=== PATIENT | male | born 1970 | race Caucasian/White ===

== ENCOUNTER 2021-07-23 12:23 | Emergency (ER) | payer OTHER, SELFPAY ==
[2021-07-23 12:25] VITALS: BP 148/129; PULSE 74; RESP 18; TEMP 36.8; O2SAT 98; BMI 34.0
--- NOTE | 2021-07-23 12:59 | ED.GENADULT ---
HPI - General Adult General Chief complaint: General Medical Stated complaint: med refill Time Seen by Provider: 07/23/21 12:57 Source: patient Mode of arrival: ambulatory Limitations: no limitations History of Present Illness HPI narrative: 51-year-old male presents for a request to refill his Eliquis prescription. Patient was diagnosed with segmental right lower lobe pulmonary emboli and left lower extremity DVT at the end of April 2021 after as suicide attempt with gabapentin overdose. Patient was in the ICU for this, which most likely precipitated his hyper coagulopathy. Patient is currently at the [facility] in [place], a 12 [facility] addiction Treatment Center. Patient has a past medical history of major depression and anxiety. Today he is not suicidal or homicidal, no hallucinations. Patient does have a psychiatrist in [place]. Patient states yesterday he had brown urine. He has no back pain. No abdominal pain. No calf pain. No chest pain, no shortness of breath. Patient is transferring his care from his primary care in [place] or he used to live to a primary care provider in [place]. He has an appointment August 16 with his new primary care provider. Related Data Previous Rx's Medication Instructions Recorded apixaban 5 mg tablet (Eliquis) 5 mg PO BID #60 tab 07/23/21 atorvastatin 20 mg tablet 20 mg PO DAILY #30 tab 07/23/21 clonidine HCl 0.1 mg tablet 0.1 mg PO BEDTIME #7 tab 07/23/21 quetiapine 25 mg tablet (Seroquel) 25 mg PO BEDTIME #7 tab 07/23/21 sennosides 8.6 mg tablet (senna) 17.2 mg PO DAILY PRN #30 tab 07/23/21 Allergies Allergy/AdvReac Type Severity Reaction Status Date / Time No Known Allergies Allergy Verified 07/23/21 12:27 Review of Systems Constitutional: Constitutional: Denies body ache(s), Denies chills, Denies fatigue, Denies fever(s), Denies headache(s), Denies malaise and Denies weakness Eyes: Eyes: Denies diplopia ENT: Denies vertigo, Denies dizziness, Denies otalgia, Denies headache(s), Denies mouth pain, Denies neck pain, Denies post nasal drip, Denies sinus pain, Denies sinus pressure, Denies sore throat and Denies throat swelling Cardiovascular: Cardiovascular: Denies chest pain, Denies syncope, Denies leg edema, Denies lightheadedness, Denies Loss of Consciousness, Denies palpitations and Denies dyspnea Respiratory: Respiratory: Denies chest congestion, Denies cough and Denies dyspnea Gastrointestinal: Gastrointestinal: Denies abdominal pain, Denies hematochezia, Denies constipation, Denies diarrhea and Denies vomiting Genitourinary: Genitourinary: Reports hematuria, Denies dysuria, Denies flank pain and Denies urinary incontinence Musculoskeletal: Musculoskeletal: Reports no additional musculoskeletal complaints, Denies back pain, Denies myalgias, Denies muscle weakness, Denies neck pain and Denies radiating pain into limb Neurologic: Denies confusion, Denies vertigo, Denies dizziness, Denies syncope, Denies headache(s) and Denies weakness Psychiatric: Psychiatric: Denies anxiety, Denies confusion and Denies depression Endocrine: Endocrine: Denies fatigue and Denies palpitations Allergic/Immunologic: Allergic/Immunologic: Denies throat swelling PMFSH Past Medical History Medical History DVT (deep venous thrombosis) Pulmonary emboli Social History Social History Advance Directives: No Advance Directives Information Provided: No Physical Exam Vital Signs: Vital Signs: Last Vital Signs Temp 98.3 F 07/23/21 12:25 Pulse 74 07/23/21 12:25 Resp 18 07/23/21 12:25 BP 148/129 H 07/23/21 12:25 Pulse Ox 98 07/23/21 12:25 Body Mass Index 34.0 Const: General: No confusion Nutritional Appearance: well nourished Orientation/consciousness: No confusion Limitations: no limitations HENMT: Head: Yes normal to inspection, Yes normocephalic and Yes atraumatic Ears: hearing grossly normal bilaterally, external ears normal, TM's normal bilaterally and EAC's normal General nose exam: Normal external nose present Face and sinus: Yes normal facial exam and Yes sinuses nontender Mouth: Normal oral and palatal mucosa present Throat: Yes posterior oropharynx normal Eyes: Conjunctivae: conjunctivae normal Pupils: Equal, round and reactive pupils present EOM: EOMs intact bilaterally Neck: Neck: Yes full ROM, Yes no lymphadenopathy and Yes supple Resp: Effort & Inspection: normal respiratory effort and able to speak in complete sentences Auscultation: clear to auscultation bilaterally, no crackles, no rales, no rhonchi and no wheezes Cardio: Rate: regular rate Rhythm: regular rhythm Heart sounds: S1 normal heart sound present and S2 normal heart sound present GI: Inspection: Yes normal to inspection Palpation (GI): Soft to palpation, nontender, no guarding and not rigid Percussion: Yes normal to percussion Auscultation: normal bowel sounds : General: Yes no CVA tenderness Back/Spine/Pelvis: Back: no CVA tenderness Cervical Spine: No cervical muscular tenderness Thoracic/Lumbar Spine: No thoracic spinal tenderness and No lumbar spinal tenderness Pelvis: no pain with anterior-posterior compression and no pain with lateral compression Skin: General skin exam: no rashes or lesions noted Neuro: General: No confusion Cranial nerves: Yes Equal, round and reactive pupils present Extrem: General: Yes normal to inspection and Yes full ROM Left lower extremity: normal to inspection, full ROM, normal capillary refill and lower leg Details: normal to inspection; Negative for no erythema, no tenderness, no localized swelling and no palpable cords; No no cyanosis, no edema and joint enlargement noted Psych: Appearance: grossly normal Affect: normal affect Attitude: cooperative Thought process: Normal thought process present Course Course Course Narrative: 51-year-old male presents for request of medication refills. Patient has been off of his Eliquis for 5 days. States yesterday he had blood in his urine. He has no back pain, no belly pain, no nausea or vomiting. No shortness of breath, no calf pain, no chest pain. He has a benign physical exam, with no redness swelling or warmth in his left lower extremity. No CVA tenderness, UA shows hematuria. This presents a conundrum, because patient has only been anticoagulated for 2 months, however, he has blood in his urine. Discussed with Dr. Voss the possibility of patient throwing a clot into his renal artery, she did not think this was likely, given that patient had no pain. She suggested I discuss with patient that we are between a rock and a hard place;, he has not completed the 3-6 months treatment of anticoagulation, however he has blood in his urine. Patient needs anticoagulation still, however we do not want to anticoagulate him to the point where he is urinating blood and needs a transfusion. The plan is to have the patient drink plenty of water, and to observe his urine. If he still has dark colored urine tomorrow, he should come back to the emergency room for further evaluation. He should not take his Eliquis today, he should wait until he has clear urine to take his Eliquis. Patient verbalized agreement and understanding of the plan. In addition I represcribed his atorvastatin and senna for 30 days, I also represcribed 1 week of Seroquel and clonidine, and advised him to follow-up with his psychiatrist for these medications. In addition, I referred him to Urology and gave him the phone number to call them on Sunday. Gave return precautions, patient verbalized agreement and understanding of the plan. Medical Decision Making Lab Data Labs: Lab Results 07/23/21 Range/Units 13:32 Urine Color YELLOW Urine Appearance HAZY Urine pH 6.0 (5.0-8.0) Ur Specific [place] >= 1.030 H (1.005-1.025) Urine Protein 1+ H (NEG-TRACE) MG/DL Urine Glucose (UA) NEG (NEG) MG/DL Urine Ketones NEG (NEG) MG/DL Urine Blood 2+ H (NEG) Urine Nitrite NEG (NEG) Ur Leukocyte Esterase NEG (NEG) Urine RBC 5-9 H (0) /HPF Urine WBC 1-4 (0-4) /HPF Ur Squamous Epith Cells 1+ /LPF Amorphous Sediment 1+ /LPF Urine Bacteria TRACE /LPF Granular Casts 1-4 /LPF Urine Mucus 3+ /LPF Discharge Plan Discharge Clinical Impression: Encounter for medication refill Hematuria Qualifiers: Hematuria type: other microscopic Qualified Code(s): R31.29 - Other microscopic hematuria Patient Disposition: Home, Self-Care Instructions: Hematuria (ED) Additional Instructions: as we discussed, fill your prescription for Eliquis today, but do not take it until tomorrow. Today, drink plenty of water, 2-3 L of water. If tomorrow you still have visible blood in your urine, you must return to the emergency room and do not start your Eliquis in addition, please call Urology in your discharge paperwork on Sunday for follow-up appointment. The number is [phone] Please call your psychiatrist for more Seroquel and clonidine medication. Please return to emergency room if you have blood in your urine, chest pain, shortness of breath, or any other new or concerning symptoms. Prescriptions: New Eliquis 5 mg tablet 5 mg PO BID Qty: 60 RF: 0 atorvastatin 20 mg tablet 20 mg PO DAILY Qty: 30 RF: 0 sennosides [senna] 8.6 mg tablet 17.2 mg PO DAILY PRN (Reason: constipation) Qty: 30 RF: 0 quetiapine [Seroquel] 25 mg tablet 25 mg PO BEDTIME Qty: 7 RF: 0 clonidine HCl 0.1 mg tablet 0.1 mg PO BEDTIME Qty: 7 RF: 0 Referrals: Jim Szymanski III, MD [Physician] - 2 days Interventions: ED Discharge Assessment Last Done: 07/23/21 14:52 Discharge Date/Time: 07/23/21 14:53
[2021-07-23 13:39] LABS: Appearance Urine HAZY; Color Urine YELLOW; Glucose Urine UA NEG (NEG); Leukocyte Esterase Urine NEG (NEG); Nitrite Urine NEG (NEG); Specific Gravity - Urine >= 1.030 (1.005-1.025); Urine Blood 2+ (NEG); Urine Ketones NEG (NEG); Urine Protein 1+ MG/DL (NEG-TRACE)
[2021-07-23 13:46] LABS: Amorphous Sediment Urine 1+ /LPF; Bacteria Urine TRACE /LPF; Mucus Urine 3+ /LPF; Squamous Epithelial Cell Urine 1+ /LPF
== END 2021-07-23 14:53 | disposition home or self-care (01) ==
PROVIDERS: Physician Assistant; Emergency Provider Emergency Medicine
DX: R31.29 Other microscopic hematuria (principal); I82.402 Acute embolism and thrombosis of unspecified deep veins of left lower extremity; I26.99 Other pulmonary embolism without acute cor pulmonale; Z79.01 Long term (current) use of anticoagulants; Z79.899 Other long term (current) drug therapy
CPT/HCPCS: 81001; 99283